=== PATIENT | female | born 1970 | race African-American/Black ===

== ENCOUNTER 2017-01-09 06:24 | Emergency (ER) | payer BC ==
[~2017-01-09] VITALS: Ht 157.5 cm; Wt 92.0 kg
[~2017-01-09 06:24] MED LIST: IBUP800T23 PO
[2017-01-09 06:26] VITALS: BP 143/74; PULSE 82; RESP 16; TEMP 98.9; O2SAT 96
--- NOTE | 2017-01-09 07:14 | PD ---
HPI Chief Complaint: General Weakness Time Seen by Provider: 07:01 Travel History International Travel<30 days: No Contact w/Intl Traveler<30days: No Traveled to known affect area: No History of Present Illness HPI 46yo F with no PMH presents to the ED with c/o generalized weakness and fatigue for a few days. States she has been very stress at home with recent deaths in the family. Pt also with 2 days and NBNB vomiting. Denies any fever, chest pain, sob, abdominal pain, urinary complaints, focal weakness or numbness. States she is 2-3 weeks late for her menstrual period. PFSH Past Medical History Cancer: No Cardiovascular Problems: No Diabetes: No Diminished Hearing: No Endocrine: No Genitourinary: No Hepatitis: No Hiatal Hernia: No Immune Disorder: No Musculoskeletal: No Neurologic: No Psychiatric: No Reproductive: No Respiratory: No Thyroid Disease: No ?: Not : 4 Para: 2 Miscarriage: 2 Ectopic : Yes (X2) Tubal Ligation: Yes Past Surgical History AICD: No Gynecologic Surgery: Yes Joint Replacement: No Pacemaker: No Other Surgery: Yes Social History Alcohol Use: Yes (OCC) Tobacco Use: No Substance Use: No Allergies-Medications (Allergen,Severity, Reaction): Coded Allergies: No Known Allergies (Verified , 01/09/17) Reported Meds & Prescriptions Reported Meds & Active Scripts Active Review of Systems Except as stated in HPI: all other systems reviewed are Neg Physical Exam Narrative GENERAL: 46yo F not in distress. SKIN: Focused skin assessment warm/dry. HEAD: Atraumatic. Normocephalic. EYES: Pupils equal and round. No scleral icterus. No injection or drainage. ENT: No nasal bleeding or discharge. Mucous membranes pink and moist. NECK: Trachea midline. No JVD. CARDIOVASCULAR: Regular rate and rhythm. No murmur appreciated. RESPIRATORY: No accessory muscle use. Clear to auscultation. Breath sounds equal bilaterally. GASTROINTESTINAL: Abdomen soft, non-tender, nondistended. No rebound tenderness or guarding. MUSCULOSKELETAL: No obvious deformities. No clubbing. No cyanosis. No edema. NEUROLOGICAL: Awake and alert. No obvious cranial nerve deficits. Motor grossly within normal limits. Normal speech. PSYCHIATRIC: Appropriate mood and affect; insight and judgment normal. Data Data Last Documented VS Vital Signs Date Time Temp Pulse Resp B/P Pulse Ox O2 Delivery O2 Flow Rate FiO2 5/21/17 07:38 60 20 108/75 99 Room Air 01/09/17 06:26 98.9 Orders Complete Blood Count With Diff (01/09/17 07:08) Basic Metabolic Panel (Bmp) (01/09/17 07:08) Electrocardiogram (01/09/17 ) Magnesium (Mg) (01/09/17 07:08) Thyroid Stimulating Hormone (01/09/17 07:08) Bhcg Screen Qualitative (01/09/17 07:14) Ondansetron Inj (Zofran Inj) (01/09/17 07:15) Labs Laboratory Tests Test 01/09/17 07:45 White Blood Count 4.4 TH/MM3 Red Blood Count 4.07 MIL/MM3 Hemoglobin 10.5 GM/DL Hematocrit 33.3 % Mean Corpuscular Volume 81.9 FL Mean Corpuscular Hemoglobin 25.9 PG Mean Corpuscular Hemoglobin 31.6 % Concent Red Cell Distribution Width 18.4 % Platelet Count 168 TH/MM3 Mean Platelet Volume 8.8 FL Neutrophils (%) (Auto) 59.3 % Lymphocytes (%) (Auto) 26.2 % Monocytes (%) (Auto) 12.8 % Eosinophils (%) (Auto) 0.8 % Basophils (%) (Auto) 0.9 % Neutrophils # (Auto) 2.6 TH/MM3 Lymphocytes # (Auto) 1.2 TH/MM3 Monocytes # (Auto) 0.6 TH/MM3 Eosinophils # (Auto) 0.0 TH/MM3 Basophils # (Auto) 0.0 TH/MM3 CBC Comment DIFF FINAL Differential Comment Sodium Level 140 MEQ/L Potassium Level 4.5 MEQ/L Chloride Level 108 MEQ/L Carbon Dioxide Level 27.0 MEQ/L Anion Gap 5 MEQ/L Blood Urea Nitrogen 19 MG/DL Creatinine 0.80 MG/DL Estimat Glomerular Filtration 93 ML/MIN Rate Random Glucose 83 MG/DL Calcium Level 8.6 MG/DL Magnesium Level 2.0 MG/DL Thyroid Stimulating Hormone 1.920 uIU/ML 3rd Gen Beta HCG, Qualitative LESS THAN 1 MIU/ML MDM Medical Decision Making Medical Screen Exam Complete: Yes Emergency Medical Condition: Yes Interpretation(s) EKG: Sinus bradycardia at 55bpm. TWI III, aVF. Differential Diagnosis Electrolyte abnormality vs. dehydration vs. hypothyroidism vs. vs. UTI Narrative Course 46yo well appearing female with c/o generalized weakness and fatigue for a few days with 2 days of vomiting. VS stable. Normal neuro exam. Will check electrolytes and TSH as well as EKG. Labs reviewed, no leukocytosis. Pt has low H/H of 10.5/33 which she has had in the past. Instructed pt to follow up with PMD for anemia work up. Denies any blood in stool and does not want me to do rectal exam to check for GI bleed. negative. Normal K and Magnesium. TSH normal. Pt given zofran. Pt tolerating PO. Return precautions given. Pt wants to go home and states will follow up with PMD. Diagnosis Primary Impression: Anemia Qualified Code: D64.89 - Anemia due to other cause, not classified Patient Instructions: General Instructions Departure Forms: Tests/Procedures Additional Instructions: Please follow up with your PMD regarding your anemia. Please return to the ED if symptoms worsen. Med/Other Pt SpecificInfo: No Change to Meds Disposition: 01 DISCHARGE HOME Condition: Stable Yumiko Anna DO January 09, 2017 07:14 Disposition: 01 DISCHARGE HOME Condition: Stable Yumiko Anna DO January 09, 2017 07:14
[2017-01-09] MEDS ORDERED: ONDANSETRON HCL 4 MG/2 ML VIAL IV PUSH ONE (07:15)
[2017-01-09 07:38] VITALS: BP 108/75; PULSE 60; RESP 20; O2SAT 99
[2017-01-09 08:01] LABS: AUTOMATED NEUTROPHIL # 2.6 TH/MM3 (1.8-7.7); BASOPHIL % 0.9 % (0.0-2.0); EOSINOPHIL % 0.8 % (0.0-4.0); HEMATOCRIT 33.3 % (35.0-46.0); HEMO FLAGS DIFF FINAL; LYMPH % 26.2 % (9.0-44.0); LYMPHOCYTE # 1.2 TH/MM3 (1.0-4.8); MEAN CELL VOLUME 81.9 FL (80.0-100.0); MEAN CORPUSCULAR HEMOGLOBIN 25.9 PG (27.0-34.0); MEAN CORPUSCULAR HGB CONC 31.6 % (32.0-36.0); MONO % 12.8 % (0.0-8.0); NEUT % 59.3 % (16.0-70.0); PLATELET COUNT 168 TH/MM3 (150-450); RED BLOOD COUNT 4.07 MIL/MM3 (4.00-5.30); RED CELL DISTRIBUTION WIDTH 18.4 % (11.6-17.2); WHITE BLOOD COUNT 4.4 TH/MM3 (4.0-11.0)
[2017-01-09 08:31] LABS: POTASSIUM 4.5 MEQ/L (3.5-5.1)
[2017-01-09 10:07] VITALS: BP 104/63; PULSE 56; RESP 18; O2SAT 98
--- NOTE | 2017-01-09 16:54 | EKG ---
Date Performed: 01/09/2017 Time Performed: 07:34:52 PTAGE: 46 years EKG: SINUS BRADYCARDIA WITH SINUS ARRHYTHMIA BORDERLINE ECG PREVIOUS TRACING : 04/10/2015 08.46 Compared to prior tracing no significant change DOCTOR: Devora Kerr Interpretating Date/Time 01/09/2017 16:51:27
== END 2017-01-09 10:22 | disposition home or self-care (01) ==
LOC: NEPC 06:24
DX: D64.89 Other specified anemias (principal)
CPT/HCPCS: 80048; 83735; 84443; 84703; 85025; 93005; 96374; 99285; J2405

== ENCOUNTER 2018-01-29 07:08 | Emergency (ER) | payer BC ==
[~2018-01-29] VITALS: Ht 157.5 cm; Wt 87.5 kg
[2018-01-29 07:12] VITALS: BP 122/78; PULSE 71; RESP 16; TEMP 98.4; O2SAT 98
--- NOTE | 2018-01-29 08:27 | RADRPT ---
EXAM DATE: 01/29/2018 8:11 AM EDT AGE/SEX: 47 years / Female INDICATIONS: Anterior medial left knee pain, fell CLINICAL DATA: This is the patient's initial encounter. Patient reports that signs and symptoms have been present for 3 days and indicates a pain score of 7/10. MEDICAL/SURGICAL HISTORY: None. . Left knee ligament repair COMPARISON: [facility] [place], KNEE LEFT COMPLETE (4VWS), 02/26/2015. . FINDINGS: The bone density is normal. The patient has had previous LCL repair with metallic anchor at the later al aspect of the distal femur. There is no fracture or dislocation. There is a small knee joint effus ion. Minimal patellar osteophytosis. CONCLUSION: Small effusion. No fracture or dislocation. Electronically signed by: Darryl Meraz MD 01/29/2018 8:26 AM EDT
[2018-01-29] MEDS ORDERED: MOBI7.5T PO (08:32)
--- NOTE | 2018-01-29 08:33 | PD ---
HPI Chief Complaint: Injury Time Seen by Provider: 07:51 Travel History International Travel<30 days: No Contact w/Intl Traveler<30days: No Traveled to known affect area: No History of Present Illness HPI 47-year-old female presents emergency department for evaluation of left knee pain. Patient had a trip and fall about 4 days ago. She landed on her knees. She states since then her left knee has been causing her pain. She has noticed that it has become more swollen. Pain is a moderate severity. It does not radiate anywhere. She has no alterations in sensation. She has no other symptoms to report. [facility] Past Medical History Medical History: Denies Significant Hx Cancer: No Cardiovascular Problems: No Diabetes: No Diminished Hearing: No Endocrine: No Genitourinary: No Hepatitis: No Hiatal Hernia: No Immune Disorder: No Musculoskeletal: No Neurologic: No Psychiatric: No Reproductive: No Respiratory: No Thyroid Disease: No Tetanus Vaccination: < 5 Years ?: Not LMP: 01/19/18 : 4 Para: 2 Miscarriage: 2 Ectopic : Yes (X2) Tubal Ligation: Yes (clipped) Past Surgical History AICD: No Section: Yes Gynecologic Surgery: Yes Joint Replacement: No Pacemaker: No Other Surgery: Yes Social History Alcohol Use: Yes (OCC) Tobacco Use: No Substance Use: No Allergies-Medications (Allergen,Severity, Reaction): Coded Allergies: No Known Allergies (Verified Adverse Reaction, Unknown, 01/29/18) Reported Meds & Prescriptions Reported Meds & Active Scripts Active Review of Systems Except as stated in HPI: all other systems reviewed are Neg Physical Exam Narrative GENERAL: Well-nourished, well-developed female patient in no acute distress SKIN: Focused skin assessment warm/dry. HEAD: Normocephalic. EYES: No scleral icterus. No injection or drainage. NECK: Supple, trachea midline. No JVD or lymphadenopathy. CARDIOVASCULAR: Regular rate and rhythm without murmurs, gallops, or rubs. RESPIRATORY: Breath sounds equal bilaterally. No accessory muscle use. MUSCULOSKELETAL: No cyanosis. Mild edema to the anterior left knee. No obvious deformity. Patient has full flexion-extension. No laxity with valgus or varus stress. Ayesha's test is negative. Distal pulses are palpable. Cap refills within normal limits. BACK: Nontender without obvious deformity. No CVA tenderness. Data Data Last Documented VS Vital Signs Date Time Temp Pulse Resp B/P (MAP) Pulse Ox O2 Delivery O2 Flow Rate FiO2 01/29/18 07:12 98.4 71 16 122/78 (93) 98 Orders Orders Knee, Complete (4vws) (01/29/18 ) Lobo Bandage (01/29/18 08:29) MDM Medical Decision Making Medical Screen Exam Complete: Yes Emergency Medical Condition: Yes Medical Record Reviewed: Yes Differential Diagnosis Knee sprain versus fracture versus effusion versus contusion Narrative Course 47-year-old female presents emergency department for evaluation left knee pain. Patient appears without distress. That he has some edema on the anterior aspect, otherwise exam is unremarkable. X-ray imaging confirms a small joint effusion of the left knee. Patient is placed in Lobo wrap, counseled on care, encouraged follow-up with primary care provider. She agrees to return immediately with acute worsening symptoms. Diagnosis Primary Impression: Knee contusion Qualified Codes: S80.02XA - Contusion of left knee, initial encounter Additional Impression: Joint effusion of knee Qualified Codes: M25.462 - Effusion, left knee Referrals: Orthopaedic Surgeon Primary Care Physician Patient Instructions: General Instructions, Swollen Knee Joint (ED) Additional Instructions: Lobo wrap for support and comfort Ice and elevate to reduce pain and swelling Follow-up with a primary care provider Return immediately with acute worsening symptoms. Med/Other Pt SpecificInfo: Prescription(s) given Scripts Meloxicam (Mobic) 7.5 Mg Tab 7.5 MG PO DAILY for Pain, #14 TAB 0 Refills Prov: Jennifer Regan 01/29/18 Disposition: 01 DISCHARGE HOME Condition: Stable Jennifer Regan Jan 29, 2018 08:33
== END 2018-01-29 08:58 | disposition home or self-care (01) ==
LOC: NEPD 07:08
DX: S80.02XA Contusion of left knee, initial encounter (principal); M25.462 Effusion, left knee; W01.0XXA Fall on same level from slipping, tripping and stumbling without subsequent striking against object, initial encounter
CPT/HCPCS: 73564; 99283